=== PATIENT | male | born 1990 | race Two or more races ===

== ENCOUNTER 2021-05-30 16:11 | Emergency (ER) | payer SELFPAY ==
[~2021-05-30] VITALS: Ht 175.3 cm; Wt 90.7 kg
--- NOTE | 2021-05-30 16:22 | NUR ---
BIB [facility]/O [facility] 2 TIMES TODAY. PT REPORTS THAT HE HAS NOT EATEN OR DRINK ANYTHING IN 5 DAYS. PT WAS DIAGNOSED WITH ESOPHAGITIS EARLIER THIS WEEK. ADMITS DIZZINESS, WEAKNESS, NUMBNESS, TINGLING IN HANDS. DENIES N/V. A&OX4, ABLE TO SPEAK AND RESPOND TO COMMANDS, NON-AMBULATORY D/T WEAKNESS. 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 UNABLE TO HOLD ARMS OR LEGS UP FOR MORE THAN 2 SECONDS. PT ON MONITOR.
[2021-05-30] MEDS ORDERED: IV NS 0.9% 1,000 ML BAG IV ONE (16:30)
[2021-05-30] MEDS ORDERED: MAG HYDROX/AL HYDROX/SIMETH 30 ML UDC ONE (16:55)
[2021-05-30] MEDS ORDERED: LIDOCAINE VISCOUS 2% UD 15 ML UDC ONE (16:55)
[2021-05-30] MEDS ORDERED: MAG HYDROX/AL HYDROX/SIMETH 30 ML UDC PO ONE (17:00)
[2021-05-30] MEDS ORDERED: LIDOCAINE VISCOUS 2% UD 15 ML UDC MM ONE (17:00)
[2021-05-30 17:14] LABS: BASOPHILS % (AUTO) 0.2 % (0.0-2.0); EOSINOPHILS % (AUTO) 0.3 % (0.0-6.0); HEMATOCRIT 44 % (39-51); HEMOGLOBIN 15.2 g/dL (13.5-17.5); LYMPHOCYTES # (AUTO) 1.9 K/uL (0.8-4.8); LYMPHOCYTES % (AUTO) 26.7 % (20.0-44.0); MEAN CORPUSCULAR HGB CONC 34 g/dl (31.0-36.0); MEAN CORPUSCULAR VOLUME 83 fL (80-96); MONOCYTES # (AUTO) 0.3 K/uL (0.1-1.30); MONOCYTES % (AUTO) 4.3 % (2.0-12.0); NEUTROPHILS # (AUTO) 4.8 K/uL (1.8-8.9); NEUTROPHILS % (AUTO) 68.5 % (43.0-81.0); PLATELET COUNT (AUTO) 233 K/uL (150-450); WHITE BLOOD COUNT (AUTO) 7.1 K/uL (4.3-11.0)
--- NOTE | 2021-05-30 17:15 | NUR ---
IV FLUIDS RUNNING. PT TOLERATING WELL
[2021-05-30 17:36] LABS: CREATININE 1.1 mg/dL (0.6-1.3); POTASSIUM 3.2 mmol/L (3.5-5.1)
[2021-05-30] MEDS ORDERED: POTASSIUM CHLORIDE 20 MEQ TAB.PRT.SR PO ONE ×2 (18:00→18:01)
[2021-05-30] MEDS ORDERED: FAMO20TA8 PO (18:04)
[2021-05-30 18:18] VITALS: BP 134/85
--- NOTE | 2021-05-30 18:18 | NUR ---
IV removed. Catheter intact and site benign. Pressure and 4x4 applied to site. No bleeding noted.
--- NOTE | 2021-05-30 18:18 | NUR ---
Patient discharged to home in stable condition. Written and verbal after care instructions given. Patient verbalizes understanding of instruction.
== END 2021-05-30 18:22 | disposition home or self-care (01) ==
LOC: ER 16:57
DX: K21.00 Gastro-esophageal reflux disease with esophagitis, without bleeding (principal); E87.6 Hypokalemia; Z79.899 Other long term (current) drug therapy
CPT/HCPCS: 36415; 80048; 82962; 85025; 93005; 96360; 99284; J7030